=== PATIENT | female | born 1940 | race African-American/Black ===

== ENCOUNTER 2017-11-15 13:03 | Inpatient (IN) | payer MEDICARE, MEDICAID ==
[~2017-11-15] VITALS: Ht 162.6 cm; Wt 49.9 kg
[~2017-11-15 13:03] MED LIST: AMLO10TA80 PO; ASPI-867 PO; ESOM40CA PO; FURO40TA5 PO; GLYB5TAB7 PO; HYDR-4009 PO; INSU10VI4; ISOS60TA PO; LOSA100T14 PO; NITR0.4T49 SL; POTA20TA82 PO; ROSU10TA PO; SITA50TA3 PO; ZOLP10TA6 PO
[2017-11-15 14:17] LABS: BASOPHILS % 0.9 % (0.0-2.0); EOSINOPHILS % 0.5 % (0.0-5.0); HEMATOCRIT. 35.3 % (36.0-48.0); HEMOGLOBIN. 11.6 g/dL (12.0-16.0); LYMPHOCYTES % 18.2 % (20.0-50.0); MEAN CORPUSCULAR HEMOGLOBIN 26.1 pg (28.0-32.0); MEAN CORPUSCULAR VOLUME 79.5 fL (81.0-99.0); MONOCYTES % 5.2 % (2.0-8.0); NEUTROPHILS % 75.2 % (40.0-76.0); PLATELET 203 x1000/uL (130-400); RED BLOOD CELL COUNT 4.44 mill/uL (4.2-5.4)
[2017-11-15 14:23] LABS: CHLORIDE 114 mEq/L (98-107)
[2017-11-15 14:25] LABS: INR 1.4; PROTHROMBIN TIME 14.7 sec (9.4-11.6)
[2017-11-15] MEDS ORDERED: CLONIDINE 0.1MG TABLET PO PRN (16:45)
[2017-11-15] MEDS ORDERED: ZOLPIDEM TARTRATE 5MG TABLET PO PRN (16:45)
[2017-11-15] MEDS ORDERED: DEXTROSE 50% WATER 50ML SYRINGE IV PRN (16:45)
[2017-11-15] MEDS ORDERED: FUROSEMIDE 40MG/4ML VIAL IVP SCH (17:05)
[2017-11-16 00:20] VITALS: BP 124/86
[2017-11-16] MEDS ORDERED: HYDROCODONE/ACETAMINOPHEN 5/325MG TABLET PO PRN (00:30)
[2017-11-16] MEDS: HYDROCODONE/ACETAMINOPHEN 5/325MG TABLET PO PRN ×4 (01:39→22:24)
[2017-11-16 04:00] VITALS: BP 104/63
[2017-11-16] MEDS ORDERED: ASPI-1159 PO (04:31)
[2017-11-16] MEDS: BLOOD SUGAR DIAGNOSTIC STRIP TEST SCH ×4 (06:17→20:45)
[2017-11-16] MEDS: INSULIN LISPRO 100 UNITS/ML SUBCUT SCH ×4 (06:20→20:41)
[2017-11-16 07:01] LABS: BASOPHILS % 0.6 % (0.0-2.0); EOSINOPHILS % 1.3 % (0.0-5.0); HEMATOCRIT. 33.2 % (36.0-48.0); HEMOGLOBIN. 11.2 g/dL (12.0-16.0); LYMPHOCYTES % 21.7 % (20.0-50.0); MEAN CORPUSCULAR HEMOGLOBIN 26.7 pg (28.0-32.0); MEAN CORPUSCULAR VOLUME 78.6 fL (81.0-99.0); MEAN PLATELET VOLUME 9.1 fl (7.4-10.4); MONOCYTES % 6.7 % (2.0-8.0); NEUTROPHILS % 69.7 % (40.0-76.0); PLATELET 198 x1000/uL (130-400); RED BLOOD CELL COUNT 4.22 mill/uL (4.2-5.4); RED CELL DISTRIBUTION WIDTH 18.7 % (11.6-14.6)
[2017-11-16 07:11] LABS: CHLORIDE 112 mEq/L (98-107)
[2017-11-16 07:31] LABS: CREATINE KINASE MB FRACTION 6.1 ng/mL (0.5-3.6)
[2017-11-16 07:34] LABS: LDL CHOLESTEROL 55 mg/dL (5-100); PHOSPHORUS 4.1 mg/dL (2.5-4.9)
[2017-11-16 07:35] LABS: CREATINE KINASE 105 IU/L (26-192)
[2017-11-16 07:37] LABS: HDL CHOLESTEROL 32 mg/dL (40-59)
[2017-11-16 08:00] VITALS: BP 113/69
[2017-11-16] MEDS ORDERED: AMLODIPINE 5MG TABLET PO SCH (09:00)
[2017-11-16] MEDS: LINAGLIPTIN 5MG TABLET PO SCH (09:04)
[2017-11-16] MEDS: NITROGLYCERIN OINT 1GM/INCH UDPKT TD SCH ×4 (09:06→20:28)
[2017-11-16 09:39] LABS: BG BASE EXCESS -12.4 mmol/L (-2.0-2.0); BG DEOXYHEMOGLOBIN 5.8 % (0.0-5.0); BG FRACTION INSPIRED OXYGEN 21; BG HCO3 ACT 11.5 mmol/L (22.0-26.0); BG METHEMOGLOBIN 0.2 % (0.0-1.5); BG OXYGEN SATURATION 94.1 % (92.0-98.5); BG PCO2 21.9 mmHg (35.0-45.0); BG PH 7.339 (7.350-7.450); BG PO2 74.7 mmHg (75.0-100.0); BG SAMPLE SITE LEFT RADIAL; BG TOTAL HEMOGLOBIN 11.2 g/dL (12.0-18.0); BG VENT MODE ROOM AIR
[2017-11-16 11:37] LABS: HEPATITIS B SURFACE ANTIGEN NEGATIVE
[2017-11-16 12:00] VITALS: BP 150/98
[2017-11-16 12:05] LABS: HEPATITIS B CORE AB IGM NEGATIVE
[2017-11-16 12:07] LABS: HEPATITIS A AB IGM NEGATIVE (NEGATIVE)
[2017-11-16] MEDS ORDERED: IPRATROPIUM/ALBUTEROL 0.5-3(2.5)MG/3ML NEB HHN PRN (13:15)
[2017-11-16 16:00] VITALS: BP 113/58
[2017-11-16] MEDS: DILTIAZEM HCL 30MG TABLET PO SCH ×2 (17:42→20:27)
[2017-11-16] MEDS: INSULIN GLARGINE UD 100 UNITS/ML SYR SUBCUT SCH (17:43)
[2017-11-16 20:00] VITALS: BP 97/48
[2017-11-16] MEDS: AMLODIPINE 2.5MG TABLET PO SCH (20:28)
[2017-11-16] MEDS: IPRATROPIUM/ALBUTEROL 0.5-3(2.5)MG/3ML NEB HHN SCH (20:57)
[2017-11-17] VITALS: BP 100/63
[2017-11-17] MEDS: IPRATROPIUM/ALBUTEROL 0.5-3(2.5)MG/3ML NEB HHN SCH ×4 (01:12→21:38)
[2017-11-17] MEDS: HYDROCODONE/ACETAMINOPHEN 10/325MG TABLET PO PRN ×4 (01:31→23:12)
[2017-11-17 04:00] VITALS: BP 101/64
[2017-11-17 06:46] LABS: BASOPHILS % 0.5 % (0.0-2.0); EOSINOPHILS % 2.1 % (0.0-5.0); HEMATOCRIT. 32.3 % (36.0-48.0); HEMOGLOBIN. 10.8 g/dL (12.0-16.0); LYMPHOCYTES % 19.4 % (20.0-50.0); MEAN CORPUSCULAR HEMOGLOBIN 26.3 pg (28.0-32.0); MEAN CORPUSCULAR VOLUME 78.6 fL (81.0-99.0); MEAN PLATELET VOLUME 8.5 fl (7.4-10.4); MONOCYTES % 8.2 % (2.0-8.0); NEUTROPHILS % 69.8 % (40.0-76.0); PLATELET 185 x1000/uL (130-400); RED BLOOD CELL COUNT 4.11 mill/uL (4.2-5.4); RED CELL DISTRIBUTION WIDTH 18.5 % (11.6-14.6)
[2017-11-17 07:47] LABS: PHOSPHORUS 3.4 mg/dL (2.5-4.9)
[2017-11-17 08:00] VITALS: BP 137/64
[2017-11-17] MEDS: LINAGLIPTIN 5MG TABLET PO SCH (09:47)
[2017-11-17] MEDS: AMLODIPINE 2.5MG TABLET PO SCH ×2 (09:47→20:24)
[2017-11-17] MEDS: DILTIAZEM HCL 30MG TABLET PO SCH ×2 (09:47→20:30)
[2017-11-17] MEDS: NITROGLYCERIN OINT 1GM/INCH UDPKT TD SCH ×4 (09:49→20:25)
[2017-11-17] MEDS: INSULIN GLARGINE UD 100 UNITS/ML SYR SUBCUT SCH (09:51)
[2017-11-17] MEDS: BLOOD SUGAR DIAGNOSTIC STRIP TEST SCH ×3 (11:43→20:23)
[2017-11-17] MEDS: INSULIN LISPRO 100 UNITS/ML SUBCUT SCH ×3 (11:44→20:23)
[2017-11-17 12:00] VITALS: BP 109/60
[2017-11-17 16:00] VITALS: BP 120/68
[2017-11-17 20:00] VITALS: BP 108/63
[2017-11-18] VITALS: BP 153/72
[2017-11-18] MEDS: IPRATROPIUM/ALBUTEROL 0.5-3(2.5)MG/3ML NEB HHN SCH ×4 (02:31→20:40)
[2017-11-18 04:00] VITALS: BP 111/59
[2017-11-18 06:42] LABS: BASOPHILS % 0.6 % (0.0-2.0); EOSINOPHILS % 2.4 % (0.0-5.0); HEMATOCRIT. 30.9 % (36.0-48.0); HEMOGLOBIN. 10.5 g/dL (12.0-16.0); LYMPHOCYTES % 14.8 % (20.0-50.0); MEAN CORPUSCULAR HEMOGLOBIN 26.6 pg (28.0-32.0); MEAN CORPUSCULAR VOLUME 78.4 fL (81.0-99.0); MEAN PLATELET VOLUME 8.5 fl (7.4-10.4); MONOCYTES % 10.2 % (2.0-8.0); PLATELET 184 x1000/uL (130-400); RED BLOOD CELL COUNT 3.94 mill/uL (4.2-5.4); RED CELL DISTRIBUTION WIDTH 18.8 % (11.6-14.6)
[2017-11-18] MEDS: BLOOD SUGAR DIAGNOSTIC STRIP TEST SCH ×4 (07:10→20:31)
[2017-11-18] MEDS: INSULIN LISPRO 100 UNITS/ML SUBCUT SCH ×4 (07:16→20:31)
[2017-11-18 08:00] VITALS: BP 130/67
[2017-11-18] MEDS: LINAGLIPTIN 5MG TABLET PO SCH (08:51)
[2017-11-18] MEDS: DILTIAZEM HCL 30MG TABLET PO SCH ×2 (08:51→20:30)
[2017-11-18] MEDS: NITROGLYCERIN OINT 1GM/INCH UDPKT TD SCH ×4 (08:51→20:29)
[2017-11-18] MEDS: AMLODIPINE 2.5MG TABLET PO SCH (08:52)
[2017-11-18] MEDS: HYDROCODONE/ACETAMINOPHEN 10/325MG TABLET PO PRN ×2 (08:57→20:00)
[2017-11-18] MEDS: INSULIN GLARGINE UD 100 UNITS/ML SYR SUBCUT SCH (10:48)
[2017-11-18 12:00] VITALS: BP 122/58
[2017-11-18] MEDS ORDERED: ASPIRIN 325MG EC TABLET PO SCH (13:00)
[2017-11-18 16:00] VITALS: BP 127/68
[2017-11-18 20:00] VITALS: BP 120/63
[2017-11-19] VITALS: BP 128/78
[2017-11-19] MEDS: IPRATROPIUM/ALBUTEROL 0.5-3(2.5)MG/3ML NEB HHN SCH ×4 (02:03→20:11)
[2017-11-19 04:00] VITALS: BP 111/66
[2017-11-19 05:53] LABS: PHOSPHORUS 3.8 mg/dL (2.5-4.9)
[2017-11-19] MEDS: BLOOD SUGAR DIAGNOSTIC STRIP TEST SCH ×4 (06:11→20:38)
[2017-11-19] MEDS: INSULIN LISPRO 100 UNITS/ML SUBCUT SCH ×4 (06:11→20:38)
[2017-11-19 06:25] LABS: BASOPHILS % 0.6 % (0.0-2.0); EOSINOPHILS % 3.3 % (0.0-5.0); HEMATOCRIT. 29.5 % (36.0-48.0); HEMOGLOBIN. 9.6 g/dL (12.0-16.0); LYMPHOCYTES % 16.1 % (20.0-50.0); MEAN CORPUSCULAR HEMOGLOBIN 25.9 pg (28.0-32.0); MEAN CORPUSCULAR VOLUME 79.5 fL (81.0-99.0); MEAN PLATELET VOLUME 8.4 fl (7.4-10.4); MONOCYTES % 11.3 % (2.0-8.0); NEUTROPHILS % 68.7 % (40.0-76.0); PLATELET 178 x1000/uL (130-400); RED BLOOD CELL COUNT 3.71 mill/uL (4.2-5.4); RED CELL DISTRIBUTION WIDTH 18.7 % (11.6-14.6)
[2017-11-19 08:00] VITALS: BP 123/74
[2017-11-19] MEDS: NITROGLYCERIN OINT 1GM/INCH UDPKT TD SCH ×4 (08:57→20:34)
[2017-11-19] MEDS: DILTIAZEM HCL 30MG TABLET PO SCH ×2 (08:59→20:33)
[2017-11-19] MEDS: ASPIRIN 81MG EC TABLET PO SCH (09:02)
[2017-11-19] MEDS: INSULIN GLARGINE UD 100 UNITS/ML SYR SUBCUT SCH (09:02)
[2017-11-19] MEDS: LINAGLIPTIN 5MG TABLET PO SCH (09:02)
[2017-11-19] MEDS: HYDROCODONE/ACETAMINOPHEN 10/325MG TABLET PO PRN ×2 (09:09→16:55)
[2017-11-19 12:00] VITALS: BP 112/67
[2017-11-19 16:00] VITALS: BP 112/53
[2017-11-19 20:00] VITALS: BP 105/59
[2017-11-20] VITALS (11 sets, daily range): BP systolic 11–142; BP diastolic 34–85
[2017-11-20] MEDS: IPRATROPIUM/ALBUTEROL 0.5-3(2.5)MG/3ML NEB HHN SCH ×2 (02:25→11:55)
[2017-11-20] MEDS: BLOOD SUGAR DIAGNOSTIC STRIP TEST SCH ×2 (06:27→11:31)
[2017-11-20] MEDS: INSULIN LISPRO 100 UNITS/ML SUBCUT SCH ×2 (06:35→11:49)
[2017-11-20 06:44] LABS: BASOPHILS % 1.3 % (0.0-2.0); EOSINOPHILS % 4.4 % (0.0-5.0); HEMATOCRIT. 30.1 % (36.0-48.0); HEMOGLOBIN. 10.2 g/dL (12.0-16.0); LYMPHOCYTES % 13.2 % (20.0-50.0); MEAN CORPUSCULAR HEMOGLOBIN 26.5 pg (28.0-32.0); MEAN CORPUSCULAR VOLUME 78.3 fL (81.0-99.0); MEAN PLATELET VOLUME 8.6 fl (7.4-10.4); MONOCYTES % 9.2 % (2.0-8.0); NEUTROPHILS % 71.9 % (40.0-76.0); PLATELET 187 x1000/uL (130-400); RED BLOOD CELL COUNT 3.85 mill/uL (4.2-5.4); RED CELL DISTRIBUTION WIDTH 17.9 % (11.6-14.6)
[2017-11-20] MEDS: LINAGLIPTIN 5MG TABLET PO SCH (09:00)
[2017-11-20] MEDS: DILTIAZEM HCL 30MG TABLET PO SCH (09:00)
[2017-11-20] MEDS: ASPIRIN 81MG EC TABLET PO SCH (09:00)
[2017-11-20] MEDS: HYDROCODONE/ACETAMINOPHEN 10/325MG TABLET PO PRN (09:17)
[2017-11-20] MEDS: HYDROCODONE/ACETAMINOPHEN 5/325MG TABLET PO PRN (09:23)
[2017-11-20] MEDS ORDERED: LIDOCAINE HCL 1% 20ML VIAL (Pyxis) INJ ONE (10:12)
[2017-11-20] MEDS ORDERED: SODIUM BICARBONATE 4% (2.4MEQ) 5ML VIAL IV ONE (10:12)
[2017-11-20] MEDS ORDERED: CEFAZOLIN 1000MG PREMIX 50 ML IV ONE ×2 (10:50→10:54)
[2017-11-20] MEDS ORDERED: FENTANYL CITRATE/PF 50MCG/ML 2ML VIAL IV ONE (10:50)
[2017-11-20] MEDS ORDERED: FENTANYL CITRATE/PF 50MCG/ML 2ML VIAL ONE (10:54)
[2017-11-20] MEDS: INSULIN GLARGINE UD 100 UNITS/ML SYR SUBCUT SCH (11:32)
[2017-11-21] MEDS ORDERED: AMLODIPINE 2.5MG TABLET PO SCH (09:00)
== END 2017-11-20 17:15 | disposition home or self-care (01) | DRG 291 ==
LOC: ER 13:03 → 8WST 21:42 → EDBEDREQ 21:47 → EDBEDREQTM 21:47 → ENRESERV 22:15
PROVIDERS: ADMIT Specialist; ATTEND Specialist
PROC: 02HV33Z Insertion of Infusion Device into Superior Vena Cava, Percutaneous Approach (ICD-10-PCS; principal; 2017-11-16)
PROC: B5181ZA Fluoroscopy of Superior Vena Cava using Low Osmolar Contrast, Guidance (ICD-10-PCS; 2017-11-16)
PROC: B548ZZA Ultrasonography of Superior Vena Cava, Guidance (ICD-10-PCS; 2017-11-16)
PROC: 5A1D70Z Performance of Urinary Filtration, Intermittent, Less than 6 Hours Per Day (ICD-10-PCS; 2017-11-16)
PROC: 5A1D70Z Performance of Urinary Filtration, Intermittent, Less than 6 Hours Per Day (ICD-10-PCS; 2017-11-17)
PROC: 5A1D70Z Performance of Urinary Filtration, Intermittent, Less than 6 Hours Per Day (ICD-10-PCS; 2017-11-19)
PROC: 0JH63XZ Insertion of Tunneled Vascular Access Device into Chest Subcutaneous Tissue and Fascia, Percutaneous Approach (ICD-10-PCS; 2017-11-20)
PROC: 02HV33Z Insertion of Infusion Device into Superior Vena Cava, Percutaneous Approach (ICD-10-PCS; 2017-11-20)
PROC: B5181ZA Fluoroscopy of Superior Vena Cava using Low Osmolar Contrast, Guidance (ICD-10-PCS; 2017-11-20)
PROC: 02PYX3Z Removal of Infusion Device from Great Vessel, External Approach (ICD-10-PCS; 2017-11-20)
DX: I13.0 Hypertensive heart and chronic kidney disease with heart failure and stage 1 through stage 4 chronic kidney disease, or unspecified chronic kidney disease (principal); I50.43 Acute on chronic combined systolic (congestive) and diastolic (congestive) heart failure; J96.00 Acute respiratory failure, unspecified whether with hypoxia or hypercapnia; N17.0 Acute kidney failure with tubular necrosis; N18.4 Chronic kidney disease, stage 4 (severe); E87.2 Acidosis; E44.0 Moderate protein-calorie malnutrition; J84.9 Interstitial pulmonary disease, unspecified; I47.1 Supraventricular tachycardia; Z68.1 Body mass index [BMI] 19.9 or less, adult; I25.5 Ischemic cardiomyopathy; I25.10 Atherosclerotic heart disease of native coronary artery without angina pectoris; I27.20 Pulmonary hypertension, unspecified; K21.9 Gastro-esophageal reflux disease without esophagitis; E11.65 Type 2 diabetes mellitus with hyperglycemia; I34.0 Nonrheumatic mitral (valve) insufficiency; E87.5 Hyperkalemia; D64.9 Anemia, unspecified; E11.21 Type 2 diabetes mellitus with diabetic nephropathy; M54.9 Dorsalgia, unspecified; E11.22 Type 2 diabetes mellitus with diabetic chronic kidney disease; G89.29 Other chronic pain; E11.51 Type 2 diabetes mellitus with diabetic peripheral angiopathy without gangrene; E78.1 Pure hyperglyceridemia; E11.42 Type 2 diabetes mellitus with diabetic polyneuropathy; J44.9 Chronic obstructive pulmonary disease, unspecified; N27.1 Small kidney, bilateral; N28.1 Cyst of kidney, acquired; Z95.810 Presence of automatic (implantable) cardiac defibrillator; Z88.5 Allergy status to narcotic agent; Z91.041 Radiographic dye allergy status; I25.2 Old myocardial infarction; Z95.5 Presence of coronary angioplasty implant and graft; Z79.4 Long term (current) use of insulin; Z79.82 Long term (current) use of aspirin; Z79.899 Other long term (current) drug therapy; Z87.891 Personal history of nicotine dependence; Z82.49 Family history of ischemic heart disease and other diseases of the circulatory system; Z98.51 Tubal ligation status; Z99.2 Dependence on renal dialysis
CPT/HCPCS: 36415; 36558; 36569; 36589; 36600; 71045; 76770; 76937; 77001; 80048; 80053; 80061; 82375; 82550; 82553; 82805; 82962; 83036; 83605; 83735; 83880; 84100; 84443; 84484; 85025; 85379; 85610; 86705; 86709; 86803; 87340; 93005; 93970; 96374; 99152; 99153; 99285; C1750; C1752; C1769; J0690; J1642; J1815; J1940; J3010; J3490; J7030; J7040; J7620